=== PATIENT | male | born 1970 | race Caucasian/White ===

== ENCOUNTER 2019-02-23 11:34 | Emergency (ER) | payer BC ==
[~2019-02-23] VITALS: Ht 188 cm; Wt 86.2 kg
[2019-02-23 11:41] VITALS: BP 125/77
[2019-02-23] MEDS ORDERED: ASPIRIN81 MG ORAL (11:46)
--- NOTE | 2019-02-23 11:55 | NUR ---
ED Nurse Note: PT. AAOX4. AMBULATORY. CAME IN TO ER DUE TO ACCIDENTALLY TOUCHING CAR'S EXHAUST.
--- NOTE | 2019-02-23 12:08 | Emergency Room Report ---
History of Present Illness General Chief Complaint: Burn/Smoke Inhalation Source: Patient Present Illness HPI 48-year-old male with no significant past medical history here complaining of pain in the right hand after exposure to exhaust today. Reports that he immediately applied an ice pack to the affected area denies increased swelling, bleeding, pus drainage. 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 Has not taken any medication for pain. Is up-to-date with his tetanus shot, denies other injury, chest pain, palpitation, shortness of breath , and all other associated symptoms. Patient reports that he was working on his car and had a little bit of exhaust liquid getting on his hand Allergies: Coded Allergies: No Known Allergies (Unverified , 02/23/19) Patient History Past Medical History: see triage record Past Surgical History: unable to obtain Pertinent Family History: unable to obtain Immunizations: UTD Reviewed Nursing Documentation: PMH: Agreed; PSxH: Agreed Nursing Documentation-PMH Past Medical History: No Stated History Review of Systems All Other Systems: negative except mentioned in HPI Physical Exam Vital Signs Date Time Temp Pulse Resp B/P (MAP) Pulse Ox O2 Delivery O2 Flow Rate FiO2 02/23/19 11:41 76 18 Room Air 02/23/19 11:41 97.7 125/77 98 Sp02 EP Interpretation: reviewed, normal General Appearance: normal inspection, well appearing, no apparent distress, alert Head: normocephalic, atraumatic Eyes: bilateral eye normal inspection, bilateral eye PERRL ENT: normal ENT inspection, normal pharynx Neck: normal inspection, full range of motion, supple Respiratory: normal inspection, lungs clear, no rhonchi, no wheezing Cardiovascular #1: normal inspection, regular rate, rhythm, no gallop Cardiovascular #2: 2+ radial (R), 2+ radial (L) Gastrointestinal: normal inspection, non tender Genitourinary: no CVA tenderness Musculoskeletal: digits/nails normal, other - Degree burn on the right second third and fourth digit on the palmar region no pus drainage no bullae Neurologic: normal inspection, alert, oriented x3 Psychiatric: normal inspection, judgement/insight normal Skin: warm/dry, ford - Right second, third, fourth finger on the palmar side without any pus pus drainage and no bullae Lymphatic: normal inspection, no adenopathy Procedures Additional Procedure Procedure Narrative silfazine applied, wound care and dressing Medical Decision Making PA Attestation All my diagnosis and treatment plans were reviewed ad discussed with my supervising physician Dr. Maurice Diagnostic Impression: Primary Impression: First degree burn of right hand ER Course 48-year-old male with no significant past medical history here complaining of pain in the right hand after exposure to exhaust today. Reports that he immediately applied an ice pack to the affected area denies increased swelling, bleeding, pus drainage. 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 Has not taken any medication for pain. Is up-to-date with his tetanus shot, denies other injury, chest pain, palpitation, shortness of breath , and all other associated symptoms. Patient reports that he was working on his car and had a little bit of exhaust liquid getting on his hand Ddx considered but are not limited to:right hand first degree burn, second degree burn, third degree burn Vital signs: are WNL, pt. is afebrile H&PE are most consistent with: first Degree burn ORDERS: Wound care and dressed, Keflex, Naproxen ED INTERVENTIONS: burn care DISCHARGE: At this time pt. is stable for d/c to home. Will provide printed patient care instructions, and any necessary prescriptions. Care plan and follow up instructions have been discussed with the patient prior to discharge. Last Vital Signs Date Time Temp Pulse Resp B/P (MAP) Pulse Ox O2 Delivery O2 Flow Rate FiO2 02/23/19 11:41 97.7 76 18 125/77 (93) 98 Room Air Disposition: HOME, SELF-CARE Condition: Stable Scripts Naproxen* (NAPROXEN*) 500 Mg Tablet 500 MG ORAL TWICE A DAY, #30 TAB Prov: Marichuy De La Cruz 02/23/19 Bacitracin (Bacitracin) 28.4 Gm Oint...g. 1 APPLIC TOPIC THREE TIMES A DAY, #28 GM Prov: Marichuy De La Cruz 02/23/19 Cephalexin* (KEFLEX*) 500 Mg Capsule 500 MG ORAL EVERY 6 HOURS for 7 Days, #28 CAP Prov: Marichuy De La Cruz 02/23/19 Patient Instructions: Burn Care Additional Instructions: Take medication as directed, follow with a primary care provider, avoid strenuous physical activity proper wound care advised Marichuy De La Cruz Feb 23, 2019 12:08
[2019-02-23] MEDS ORDERED: BACITRACIN15 GM TOPIC (12:09)
[2019-02-23] MEDS ORDERED: CEPHALEXIN500 MG ORAL (12:09)
[2019-02-23] MEDS ORDERED: NAPROXEN500 M2 ORAL (12:09)
[2019-02-23 12:16] VITALS: BP 125/77
--- NOTE | 2019-02-23 12:30 | NUR ---
ER DISCHARGE NOTE:ointment and dry dressing was placed on burn Patient is cleared to be discharged per ERMD, pt is aox4, on room air, with stable vital signs. pt was given dc and prescription instructions, pt was able to verbalize understanding, pt is able to ambulate with steady gait. pt took all belongings.
== END 2019-02-23 13:00 | disposition home or self-care (01) ==
LOC: EMR 13:00
DX: T23.101A Burn of first degree of right hand, unspecified site, initial encounter (principal); X14.1XXA Other contact with hot air and other hot gases, initial encounter; Y92.9 Unspecified place or not applicable
CPT/HCPCS: 99283